=== PATIENT | female | born 1995 | race African-American/Black ===

== ENCOUNTER 2018-04-27 13:16 | Emergency (ER) | payer OTHER ==
--- NOTE | 2018-04-27 14:28 | RAD ---
INDICATION: Left knee pain COMPARISON: None TECHNIQUE: AP, lateral, tunnel, and sunrise views were obtained. FINDINGS: There is no acute fracture. The knee articulates normally. There is a suprapatellar joint effusion. IMPRESSION: JOINT EFFUSION.
[2018-04-27 15:24] VITALS: BP 110/71
--- NOTE | 2018-04-27 15:29 | ED ---
Lower Extremity - HPI Summary HPI Summary: Patient is a 22-year-old female presenting to the ED 1 day after knee injury. She states she was kneeling with her contralateral knee on a bandage slid back and feels as though she may have twisted the left knee. Endorses effusion and pain with ambulation, but denies any discolorations. Pain is a 2/10 with ambulation. She denies feeling laxity in the joint. She states she is otherwise healthy and denies any other concerns at this time. - History of Current Complaint Chief Complaint: EDExtremityLower Stated Complaint: LT LEG INJURY Time Seen by Provider: 04/27/18 13:27 Hx Obtained From: Patient Mechanism Of Injury: Twisted Onset of Pain: Minutes, Hours Onset/Duration: Hours Severity Initially: Moderate Severity Currently: Moderate Pain Intensity: 0 Pain Scale Used: 0-10 Numeric Timing: Constant Location: Is Discrete @ Associated Signs And Symptoms: Positive: Swelling. Negative: Redness, Bruising Aggravating Factor(s): Standing, Ambulation Alleviating Factor(s): Rest Able to Bear Weight: No - Risk Factors Gout Risk Factors: Negative Septic Arthritis Risk Factor: Negative - Allergies/Home Medications Allergies/Adverse Reactions: Allergies Allergy/AdvReac Type Severity Reaction Status Date / Time No Known Allergies Allergy Verified 04/27/18 13:49 Home Medications: Home Medications NK [No Home Medications Reported] 04/27/18 [History Confirmed 04/27/18] PMH/Surg Hx/FS Hx/Imm Hx Previously Healthy: Yes Infectious Disease History: No Infectious Disease History: Denies: Traveled Outside the [place] in Last 30 Days - Social History Occupation: Employed Full-time Lives: With Family Alcohol Use: Rare Hx Substance Use: No Substance Use Type: Reports: None Smoking Status (MU): Never Smoked Tobacco Review of Systems Constitutional: Negative Negative: Fever, Chills, Fatigue, Skin Diaphoresis Negative: Palpitations, Chest Pain Negative: Shortness Of Breath, Cough Genitourinary: Negative Positive: no symptoms reported, see HPI Positive: Arthralgia, Myalgia Skin: Negative Positive: Headache All Other Systems Reviewed And Are Negative: Yes Physical Exam Triage Information Reviewed: Yes Vital Signs On Initial Exam: Initial Vitals Temp Pulse Resp BP Pulse Ox 98.3 F 85 19 124/67 100 04/27/18 13:22 04/27/18 13:22 04/27/18 13:22 04/27/18 13:22 04/27/18 13:22 Vital Signs Reviewed: Yes Appearance: Positive: Well-Appearing, Well-Nourished Skin: Positive: Skin Color Reflects Adequate Perfusion Head/Face: Positive: Normal Head/Face Inspection Neck: Positive: Supple, No Lymphadenopathy Respiratory/Lung Sounds: Positive: Clear to Auscultation, Breath Sounds Present Cardiovascular: Positive: RRR, Pulses are Symmetrical in both Upper and Lower Extremities Musculoskeletal: Positive: Pain @ - left knee with effusion - worse with ambulation and flexion Neurological: Positive: Speech Normal Psychiatric: Positive: Normal, Affect/Mood Appropriate Diagnostics - Vital Signs Vital Signs Temp Pulse Resp BP Pulse Ox 04/27/18 15:23 97.9 F 76 16 110/71 99 04/27/18 13:22 98.3 F 85 19 124/67 100 - Laboratory Lab Statement: Any lab studies that have been ordered have been reviewed, and results considered in the medical decision making process. Lower Extremity Course/Dx - Course Course Of Treatment: During the course of treatment, the patient is evaluated for left knee effusion. X-ray obtained which shows joint effusion suprapatellar , but no other acute osseous injuries are noted. She is ambulating well, but with pain. I have advised she have a knee immobilizer at this time and to follow up with orthopedics for further evaluation. Flexion is with pain. Full extension is without pain. Anterior drawer negative. Joe's not performed due to pain and effusion. She is encouraged ibuprofen and no given for work. - Diagnoses Provider Diagnoses: Knee effusion, left Discharge - Sign-Out/Discharge Documenting (check all that apply): Discharge/Admit/Transfer - Discharge Plan Condition: Stable Disposition: HOME Patient Education Materials: Swollen Knee Joint (ED) Forms: *Work Release Referrals: No Primary Care Phys,NOPCP [Primary Care Provider] - Additional Instructions: Follow up with orthopedics if any symptoms become worse or fail to improve Ibuprofen 600mg three times daily Ice Elevate - Billing Disposition and Condition Condition: STABLE Disposition: Home
== END 2018-04-27 15:23 | disposition home or self-care (01) ==
LOC: ED 13:16
DX: M25.462 Effusion, left knee (principal); R51 Headache; R60.0 Localized edema
CPT/HCPCS: 99283